=== PATIENT | male | born 1930 | race Caucasian/White ===

== ENCOUNTER 2017-02-16 13:32 | Inpatient (IN) | payer MEDICARE ==
--- NOTE | ~2017-02-16 | DS ---
Discharge Summary [facility] [address] [place]. [address] NAME: LACY FITZGERALD : 34 STATUS : ADM IN [facility]#: [id number] AGE: 87 ADM/REG DATE : 02/16/17 MR#: [id number] REPORT SERV DATE: 02/20/17 DICTATED BY: Brooke BROOKE DATE: 02/20/17 REPORT STATUS : Draft TRANSCRIBED BY: MODL DATE: 02/20/17 ADMISSION DATE: 02/16/2017 DISCHARGE DATE: DIAGNOSES AT THE TIME OF INTERIM SUMMARY: Loptx-ci-lxxsfzs systolic heart failure; cardiogenic shock, resolved; Chronic kidney disease, stage 3 to 4; hypoxic respiratory failure, qwyon-wr-rsjioir ischemic cardiomyopathy, ejection fraction of 20%, chronic obstructive pulmonary disease; hypothyroidism; polyarthritis, resolved. CONSULTS: None. PROCEDURES: None. BRIEF SUMMARY: An 87-year-old male patient presented with cardiogenic shock and acute respiratory failure. The patient's home cardiac medications were held to sustain his blood pressure and volume was given in the emergency room. Unfortunately, this did prompt his systolic heart failure giving his underlying ejection fraction of 20%. Patient was successfully diuresed and we were able to resume part of his cardiac medications with stabilization in his blood pressure. The patient currently is on Bumex 1 mg p.o. b.i.d. along with carvedilol 3.125 mg b.i.d. and potassium supplementation. We continue to hold his Imdur and sotalol. Patient has improved to the point clinically that he can transition out to a cardiac telemetry floor. We will discontinue his Gorman catheter at this time. He will continue to work with physical and occupational therapy. We anticipate a mcfp need at the time of discharge. We will continue to monitor his input, output, daily weights, and electrolytes closely. The patient's hospital care will be provided by another member of the team starting 02/21/2017. The patient is a DNR/DNI of note, and we again anticipate transition to mcfp facility for ongoing improvement in his functional status at the time of discharge. [facility]/RAMY Brooke Brooke M.D. / [id number] CC: Alexandre Parkinson M.D.
--- NOTE | ~2017-02-16 | OP ---
Record Of Operation [facility] [address] [place]. [address] NAME: LACY FITZGERALD : 34 STATUS : ADM IN [facility]#: [id number] AGE: 87 ADM/REG DATE : 02/16/17 MR#: [id number] REPORT SERV DATE: 02/22/17 DICTATED BY: CORBY SPRINGER DATE: 02/22/17 REPORT STATUS : Draft TRANSCRIBED BY: MODL DATE: 02/22/17 DATE OF PROCEDURE: 02/22/2017 PREPROCEDURE DIAGNOSIS: Right knee effusion with possible septic arthrosis. POSTOPERATIVE DIAGNOSIS: Right knee effusion with possible septic arthrosis. PROCEDURE: Aspiration, right knee. SURGEON: Corby Springer M.D. ANESTHESIA: Lidocaine 1% local anesthetic. ESTIMATED BLOOD LOSS: None. FLUIDS: None. DRAINS: None. COMPLICATIONS: None. INDICATION: 87-year-old gentleman presented to the hospital one week prior with multiple joint pain, then had cardiopulmonary issues, which required admission. He continued to have localized pain to the right knee with noted effusion and medical service requested orthopedic consultation for possible septic arthrosis. The patient reports pain diffusely about the knee. Denies any fevers, sweats, chills, nausea, or other constitutional symptoms. He did have an elevated CRP and sedimentation rate, as well as mildly elevated white count. The patient was examined and noted to have a right knee effusion with pain beyond 45-degree flexion. Decision was made for aspiration right knee. The patient was apprised of the recommendations and agreed to proceed. DESCRIPTION OF PROCEDURE: The patient had the right knee prepped and draped with Betadine, alcohol, and skin prep. 2 mL of 1% lidocaine were injected in the subcutaneous tissues for anesthesia. An 18-gauge needle with large syringe was then utilized to perform aspiration of the knee joint. This was done obtaining 2 mL of normal-appearing joint fluid. The fluid was sent off for Gram stain, aerobic, anaerobic, cell count, crystals. The patient will be followed in the hospital post aspiration and then in the office post discharge as needed. ABHIJIT/RAMY Corby Springer M.D. / [id number] Record Of Operation [facility] [address] [place]. [address] NAME: LACY FITZGERALD : 34 STATUS : ADM IN PAT#: [id number] AGE: 87 ADM/REG DATE : 02/16/17 MR#: [id number] REPORT SERV DATE: 02/22/17 DICTATED BY: CORBY SPRINGER DATE: 02/22/17 REPORT STATUS : Draft TRANSCRIBED BY: MODL DATE: 02/22/17 CC: Alexandre Reynolds M.D.
--- NOTE | ~2017-02-16 | IDS ---
Interim Discharge Summary [facility] [address] [place]. [address] NAME: LACY FITZGERALD : 32 STATUS : ADM IN PAT#: [id number] AGE: 87 ADM/REG DATE : 02/16/17 MR#: [id number] REPORT SERV DATE: 02/23/17 DICTATED BY: DATE: REPORT STATUS : Draft TRANSCRIBED BY: MODL DATE: 02/23/17 ADMISSION DATE: 02/16/2017 DISCHARGE DATE: The patient has been admitted to the Hospitalist Service with attending Dr. Shahida Yi, Dr. Kd Diaz, and Dr. Sonya Carvalho. CONSULTANTS: Dr. Enrique Martin of Orthopedics and consultation is pending from Dr. Briscoe of Cardiology. CURRENT DIAGNOSES: 1. Cardiogenic shock-reason for admission. Resolved, although progressively hypotensive despite holding several cardiac medications and diuretics. For evaluation by Cardiology for possible Milrinone infusion or other management recommendations. 2. Acute congestive heart failure exacerbation, systolic-with ejection fraction 15% to 20%. 3. History of AICD. 4. Chronic kidney disease stage 3 to 4-baseline creatinine around 1.7. Possible acute kidney injury with possible cardiorenal syndrome. 5. Demand related ischemia. 6. Oxygen-dependent chronic obstructive pulmonary disease. 7. History of left ventricular thrombus on chronic Coumadin. Heparin drip to bridge. 8. Nonspecific nausea-labs and abdominal ultrasound negative. 9. Polyarthritis, particularly right knee. Status post joint aspiration with no evidence of gout or infection. Started on a low dose of prednisone to assist with pain and mobility. 10.Hypothyroidism. IMAGIN. PA and lateral chest x-ray, 02/16/2017, bibasilar scar and findings of prior asbestos exposure. Prior CABG and pacing device in place. 2. Portable chest x-ray, 02/17/2017, continued cardiomegaly, status post CABG with developing mild interstitial edema and small right pleural fluid effusion. Superimposed on underlying COPD and chronic pleural thickening at lateral bases. 3. Portable chest x-ray, 02/18/2017, cardiomegaly with vascular congestion and bilateral asymmetric infiltrates consistent with asymmetric interstitial edema. 4. Portable chest x-ray, 02/19/2017, bibasilar airspace infiltrates have appearance consistent with pneumonia. 5. Portable KUB, 02/19/2017 for nausea, mild gaseous distention of the transverse colon. Gaseous distention of the stomach. 6. Right knee films, 02/21/2017, severe osteoarthritis pattern predominantly affecting medial joint line. Nonspecific small joint effusion. 7. Abdominal ultrasound, 02/22/2017, no cholelithiasis and no chronic or acute cholecystitis. No bile duct dilatation. Diffuse bilateral renal cortical thinning with no signs of renal obstruction. Small right renal cyst. Interim Discharge Summary [address] [place]. [address] NAME: LACY FITZGERALD : 32 STATUS : ADM IN PAT#: [id number] AGE: 87 ADM/REG DATE : 02/16/17 MR#: [id number] REPORT SERV DATE: 02/23/17 DICTATED BY: DATE: REPORT STATUS : Draft TRANSCRIBED BY: MODCeci DATE: 02/23/17 PERTINENT LABS: Creatinine values ranging from 1.7 to 1.94. TSH 2.62. Troponin values ranging from 0.02 to 0.13. BNP 731. Lactic acid level negative. Procalcitonin negative. Cortisol 19.2. White blood cell count values between 14.5 and 8.4, hemoglobin values between 11.1 and 13.7, platelet count normal. Current INR 1.5. Urinalysis is demonstrating 11 hyaline casts and trace leukocyte esterase. Blood cultures, multiple sets with no growth at this admission. Right knee aspirate, no growth, no white blood cells seen on smear. No crystals. BRIEF HISTORY: For full details, please see the previously dictated history of present illness by Dr. Shahida Yi. This is an 87-year-old white male with extensive cardiac history and COPD, which is oxygen dependent, who came to the emergency department with complaints of joint pain and nausea starting two days prior to admission. In the emergency department, he was found to be hypotensive with blood pressure 84/43, and was admitted to the Hospitalist Service primarily for hypotension and cardiogenic shock. He also demonstrated evidence of acute kidney injury on chronic kidney disease stage 3 versus 4. He was admitted to the [facility] for hospitalization. HOSPITAL COURSE: For dates of service 02/16/2017 to 02/20/2017, please reference interim discharge summary by Dr. Kd Diaz. The patient was initially admitted to the [facility]. Home cardiac medications were held to sustain blood pressure and volume was given. Unfortunately, this did prompt an acute exacerbation of systolic heart failure. The patient was then diuresed and his carvedilol and oral Bumex were able to be resumed. He was transferred to the floor on 02/21/2017, when I assumed his care. Of note, he was also managed with stress-dose steroids while in the IMCU, for unclear reasons. He is not chronically steroid dependent, and no cortisol value was obtained prior to initiating stress dose steroids. His complaints of polyarticular pain improved dramatically while he was on the steroids, but the steroids were discontinued in the IMCU. When I assumed care of him on 02/21/2017 his main complaints were of nausea, and increased pain in his right knee specifically. He is also complaining of nonspecific weakness. His blood pressure that day was great with a systolic of 130/81. However, over the past several days his blood pressures continued to down trend, currently in the mid 80s over 60s on low dose of carvedilol and oral Bumex. Given the delicate balance of his blood pressure and cardiac medications, and the need to further decrease his Bumex today, I will ask Cardiology to see for evaluation for additional recommendations. Specifically, the patient may benefit from Milrinone, but I am unclear ask to his piece dye worker's opinion on this. He has experienced an increase in his creatinine over the past few days on oral Bumex. We will decrease his Bumex and recheck in the morning, again asking Cardiology for recommendations as this may represent some cardiorenal syndrome. For the knee pain, the patient had a joint aspiration by Dr. Enrique Martin on 02/22/2017 with only 2 mL of fluid removed, not terribly suggestive of infection. White blood cell on smear was negative and cultures have been negative thus far. The knee is feeling better, and we will plan to reinstitute the patient on a low dose of steroids to see if this helps with his polyarticular pain. Interim Discharge Summary [place] [id number] [facility] [place]. [address] NAME: LACY FITZGERALD : 32 STATUS : ADM IN PAT#: [id number] AGE: 87 ADM/REG DATE : 02/16/17 MR#: [id number] REPORT SERV DATE: 02/23/17 DICTATED BY: DATE: REPORT STATUS : Draft TRANSCRIBED BY: MODL DATE: 02/23/17 Also this weekend he was complaining of some nonspecific nausea. Multiple laxatives have been used in attempt to treat constipation, without bowel movement. We will try lactulose and if that is unsuccessful, an enema. Abdominal ultrasound and KUB as well as labs have been nonrevealing of any acute intraabdominal process. His nausea has generally resolved and he is tolerating a diet without difficulty. He has a history of an LV thrombus and his Coumadin was initially held. Pending physical therapy evaluation for fall risk. He is on a heparin drip presently, and Coumadin has been re-initiated to bridge to a goal INR of 2 to 3. DISCHARGE DISPOSITION: The patient remains hospitalized for Cardiology evaluation, with current disposition at discharge unclear. The patient wants to go home with home health or home physical therapy, although may not be a candidate for this given his general degree of weakness. Inpatient rehab may be recommended. Items to following morning include Cardiology recommendations, daily PT/INR with heparin drip to discontinue when INR greater than equal to 2 on two consecutive occasions. Repeat creatinine and blood pressure measurements on decreased dose of Bumex, and a two-view chest x-ray in the morning as the patient was developing a slight cough today and there was question of a pneumonia previously in the hospitalization, although procalcitonin was negative at that point and he has not been treated with antibiotics this admission. GENIE/RAMY Sonya Carvalho M.D. / [id number] CC: SONYA CARVALHO M.D. James Hoback Jr., M.D.
--- NOTE | ~2017-02-16 | DS ---
Discharge Summary [facility] [address] [place]. [address] NAME: LACY FITZGERALD : 32 STATUS : DIS IN PAT#: [id number] AGE: 87 ADM/REG DATE : 02/16/17 MR#: [id number] REPORT SERV DATE: 03/02/17 DICTATED BY: KARISSA CANELA DATE: 03/02/17 REPORT STATUS : Draft TRANSCRIBED BY: MODL DATE: 03/02/17 ADMISSION DATE: 02/16/2017 DISCHARGE DATE: 03/02/2017 Date of tentative transfer to [facility] [place] is 03/02/2017. CONDITION ON TRANSFER: Stable. DISPOSITION: Transfer to [facility] [place]. DIAGNOSES ON DISCHARGE: 1. Cardiogenic shock-resolved. 2. Acute systolic and diastolic congestive heart failure-resolved. 3. Chronic cardiomyopathy with an ejection fraction of only 25%. Actually, this is an improvement from an ejection fraction of only 15%. The improvement happened after college admissions counselor, Dr. Briscoe, had him on IV dopamine for a few days. 4. Chronic congestive heart failure and cardiomyopathy with an EF of 25%. 5. History of AICD. 6. Chronic kidney disease, stage III with baseline creatinine of about 1.7. 7. Oxygen-dependent chronic obstructive pulmonary disease. 8. History of left ventricular thrombus, for which the patient is on Coumadin and currently the patient is therapeutic on the Coumadin. 9. Polyarthritis, status post joint aspiration of the right knee, for which the patient is on low-dose prednisone and this could be tapered off. 10.Hypothyroidism which is stable. BRIEF HOSPITAL COURSE: All the way up until 02/24/2017, this patient was cared for by Dr. Kevin Knowles, please refer to her for this interim discharge summary. When I took over care of this patient on 02/24/2017, the patient had already been seen by Dr. Briscoe and he had started him on IV dopamine infusion. The patient was on IV dopamine for about three days and then Dr. Briscoe weaned him off that. His EF still continues to be very low and there is very little improvement if any in his ejection fraction and it is about 25% on most recent echocardiogram. Currently, the patient is able to be mobile within his room himself. He does have a walker at home according to the , but he hardly uses it. Right here in the hospital, he sometimes uses the walker when he has to get out of his room, but within the room if it is just a few steps he is able to walk even without the walker. The patient continues to be on chronic oxygen therapy with oxygen at about 3 liters/minute. The plan is for the patient to go on to [facility] [place] for physical strengthening. The patient is willing to go this time because he knows that it is only for a brief period until he is able to recover from his physical deconditioning. The patient will need inpatient PT, OT for a few more days, and hence the reason for transfer. The most recent labs that I have on this patient include the following. On 03/02/2017, the patient's protime came back therapeutic at 2.5. The patient has also had an electrolyte profile that was done on 03/01/2017 and this has come back with creatinine at 1.6 which is his baseline. Discharge Summary [address] [address] NAME: LACY FITZGERALD : 32 STATUS : DIS IN PAT#: [id number] AGE: 87 ADM/REG DATE : 02/16/17 MR#: [id number] REPORT SERV DATE: 03/02/17 DICTATED BY: KARISSA CANELA DATE: 03/02/17 REPORT STATUS : Draft TRANSCRIBED BY: RAMY DATE: 03/02/17 His CBC essentially was done on 02/25/2017, and on that day, his white blood cell count was 8.6, hemoglobin 13.1, hematocrit 38.8, and normal platelets. His brain natriuretic peptide is 449.5, which is probably his baseline given the severe systolic dysfunction. Blood cultures so far has come back negative. Culture of the fluid from the right knee has come back with no growth. As mentioned above, the most recent ejection fraction is 25% and right now the patient is quite mobile within his own room. He will be discharged home on the following medications. The patient will be discharged home on aspirin 81 mg once a day. Coumadin sliding scale to keep INR between 2 and 3. Sotalol 40 mg once a day. Coreg 3.125 mg p.o. at bedtime. It is to be noted that Coreg is only once a day and sotalol is also once a day, but both are beta blockers and that is the way Cardiology wants it. Regarding his respiratory problems, he will be on Brovana inhalation twice a day, Proventil p.r.n., Pulmicort Respules 1 mg twice daily p.r.n., Spiriva one capsule via HandiHaler, and continue Synthroid 25 mcg once a day. In addition to this, the patient will also be on Bumex 0.5 mg p.o. b.i.d., and this is all pretty much that he requires to keep fluid off his lungs at this time. Hence his cardiac medications will be Bumex, Coreg, sotalol, and Coumadin. Regarding Deltasone, he will be weaned off prednisone. He will be given a prescription for 10 mg a day for next three days, 5 mg a day for the next three days and stop. Essentially, he was just started on prednisone to improve his mobility after his right knee was drained. Otherwise, the patient has been doing really well and will be sent to [facility] when bed available and I have spent about 40 minutes in coordinating discharge care of this patient. DICTATED BY: Alexandre Díaz/RAMY Karissa Canela M.D. / [id number] CC: Alexandre Díaz M.D.
--- NOTE | ~2017-02-16 | OP ---
Record Of Operation [facility] [address] [place], [place]. [address] NAME: LACY FITZGERALD : 32 STATUS : ADM IN PAT#: [id number] AGE: 87 ADM/REG DATE : 02/16/17 MR#: [id number] REPORT SERV DATE: 02/22/17 DICTATED BY: CORBY SPRINGER DATE: 02/22/17 REPORT STATUS : Draft TRANSCRIBED BY: MODL DATE: 02/22/17 DATE OF PROCEDURE: 02/22/2017 PREPROCEDURE DIAGNOSIS: Right knee effusion, rule out septic arthritis. POSTOPERATIVE DIAGNOSIS: Right knee effusion, rule out septic arthritis. PROCEDURE: Aspiration, right knee DICTATION ENDS HERE EC/MODL Corby Springer M.D. / [id number] CC: Alexandre Reynolds M.D.
--- NOTE | ~2017-02-16 | CN ---
Consultation Report [facility] [address] [place]. [address] NAME: LACY FITZGERALD : 34 STATUS : ADM IN [facility]#: [id number] AGE: 87 ADM/REG DATE : 02/16/17 MR#: [id number] REPORT SERV DATE: 02/22/17 DICTATED BY: CORBY SPRINGER DATE: 02/22/17 REPORT STATUS : Draft TRANSCRIBED BY: MODL DATE: 02/22/17 CONSULTATION DATE OF CONSULTATION: 02/22/2017 CHIEF COMPLAINT: Right knee pain and swelling. HISTORY OF PRESENT ILLNESS: An 87-year-old gentleman presented to the emergency department one week prior to [facility] for evaluation of multiple joint complaints with shortness of breath. He is admitted to the hospital and has been to the ICU and then back to the floor with cardiopulmonary issues. The patient has continued to complain of right knee pain with swelling, seen by Medical Service and recommendation made for consideration of aspiration of the knee. An orthopedic consultation was therefore obtained. The patient denied any numbness or tingling in the foot nor any pain proximal to the hip or low back. He does report multiple joint issues, have subsided somewhat, still continue however to have right knee pain. The patient denies any fever. He also denies any issue with his knee previous to his admission last week with any kind of an abrasion or injury. PAST MEDICAL HISTORY: Reviewed and is significant for heart disease, cataract, hearing loss, myopia, hypercholesterolemia, myocardial infarction, congestive heart failure, COPD, pneumonia, PREVIOUS SURGICAL PROCEDURES: Inclusive of lumbar spine surgery for fracture, cardiac stent placement, coronary artery bypass graft, cataract removal, pacemaker placement with battery exchange. CURRENT MEDICATIONS: Inclusive of Tylenol, albuterol, aspirin, Symbicort, Bumex, Coreg, Imdur, Synthroid, Pravachol, Betapace, Spiriva, and warfarin 2.5 mg tablet. ALLERGIES: TO ALPRAZOLAM, CODEINE, HYDROCODONE, JUJU INHIBITORS. FAMILY HISTORY: Significant for heart disease. SOCIAL HISTORY: Former tobacco use. Lives in a private residence. Community ambulator. History of multiple joint complaints, intermittent. REVIEW OF SYSTEMS: 10 system review is negative, except for that mentioned in the history of present illness and past medical history. PHYSICAL EXAMINATION: VITAL SIGNS: Temperature 98.7, pulse 70, respirations 16. GENERAL: He is a well-developed, well-nourished male appearing his stated age of 87 years, no acute distress. Alert and cooperative. Consultation Report [facility] [address] [place]. [address] NAME: LACY FITZGERALD : 34 STATUS : ADM IN PAT#: [id number] AGE: 87 ADM/REG DATE : 02/16/17 MR#: [id number] REPORT SERV DATE: 02/22/17 DICTATED BY: CORBY SPRINGER DATE: 02/22/17 REPORT STATUS : Draft TRANSCRIBED BY: RAMY DATE: 02/22/17 EXTREMITIES: Examination to the upper extremities reveals full passive range of motion of the shoulders, wrist, elbows, hands, and digits with intact neurovascular exam distally to the hands. Lower extremity examination shows full range of motion of the left lower extremity from hip to ankle. Right lower extremity, no pain with range of motion with hip and external rotation. Right knee does show no warmth, but a nglb-qm-jyvymoct effusion on palpation. Passive range of motion was tolerated well 0 to 45 degree arc of motion, beyond which he had discomfort. He did not have any obvious warmth. There was slight erythema bilateral knees of the anterior knee joint and the patella bursal area with no obvious fluid collection. Distally in the right lower extremity, he had no pain in the ankle with an intact neurovascular exam distally to the digits. Motor function, light touch sensation is intact. Good cap refills in the integument throughout. IMAGING: Radiographs reviewed, indicates medial joint arthrosis, right knee with surgical clips consistent with previous cardiac bypass grafting. Minimal effusion is noted. ASSESSMENT: Right knee effusion, rule out septic arthrosis. PLAN: Due to the patient's increased sedimentation rate and CRP, mildly elevated white blood cell count, recommend aspiration of the knee. The procedure, its inherent risks, and complications discussed with the patient. He voiced understanding and agreed. The patient be followed in the hospital post aspiration and then post discharge in the office. EC/RISSAL Corby Springer M.D. / [id number] CC: Kevin Knowles M.D. Chapito Alvarado M.D.
--- NOTE | ~2017-02-16 | CN ---
Consultation Report [facility] [address] [place]. [address] NAME: LACY MCKOY : 34 STATUS : ADM IN [facility]#: [id number] AGE: 87 ADM/REG DATE : 02/16/17 MR#: [id number] REPORT SERV DATE: 02/24/17 DICTATED BY: JEAN HENSLEY DATE: 02/23/17 REPORT STATUS : Draft TRANSCRIBED BY: MODCeci DATE: 02/23/17 CARDIOLOGY CONSULTATION NOTE DATE OF CONSULTATION: 02/23/2017 PRIMARY TAILORING TEACHER: Dr. Briscoe. CHIEF COMPLAINT: Joint pain all over. REASON FOR CONSULTATION: History of congestive heart failure and hypotension. SOURCE: The patient chart and his . HISTORY OF PRESENT ILLNESS: Mr. Mckoy is a very pleasant 87-year-old white man with history of coronary artery disease and chronic systolic congestive heart failure as well as BOILERMAKER WELDER-D ICD placement. He was in his usual state of health until last week when he had pain in all of his joints he came to the ER on 02/16/2017 was noted to have hypotension and was admitted. He has been treated since that time, feels a little bit better today. He still has profound tiredness and fatigue yesterday. He has some pains in his fingers and ankles, but since the right knee joint fluid was drained with arthrocentesis yesterday, his right knee feels better. He has not had any fever or chills. No other swelling. No chest pain, palpitations, dizziness, or syncope. No defibrillator shocks. He has had shortness of breath. REVIEW OF SYSTEMS: All other systems are negative. ALLERGIES: INCLUDED JUJU INHIBITORS, ALPRAZOLAM, CODEINE, AND HYDROCODONE. MEDICATIONS: Now include aspirin, Bumex, carvedilol, Colace, Synthroid, milk of magnesia, MiraLAX, potassium, Pravachol, Spiriva, and Coumadin. CARDIAC RISK FACTORS: Include cholesterol, remote tobacco. Denies diabetes, hypertension, or family history. SOCIAL HISTORY: The patient lives in [facility]. He has two living children, alive and well. One with lupus and one diabetes. He is . FAMILY HISTORY: Mother had myocardial infarction in her 60s. Father had stroke at age 58. PAST MEDICAL HISTORY: Significant for coronary artery disease, status post coronary artery bypass grafting reportedly to three vessels at [facility] in 1999, status post pacemaker and ICD placement in 2008 and 2014, BOILERMAKER WELDER-D Medtronic device, history of chronic systolic congestive heart failure with last LVEF of 20% by an echo in 2014. He had possible left Consultation Report [facility] [address] [place]. [address] NAME: LACY MCKOY : 32 STATUS : ADM IN PAT#: [id number] AGE: 87 ADM/REG DATE : 02/16/17 MR#: [id number] REPORT SERV DATE: 02/24/17 DICTATED BY: JEAN HENSLEY DATE: 02/23/17 REPORT STATUS : Draft TRANSCRIBED BY: MODL DATE: 02/23/17 ventricular thrombus and was treated with Coumadin. He has had last catheterization in October 2014 which revealed three-vessel [place] coronary artery disease, 100% RCA, 100% left circumflex, 50% mid LAD. He had saphenous vein graft to PDA with severe proximal stenosis, saphenous vein graft to OM to posterolateral with severe anastomotic lesion of the left posterolateral branch, treated medically. Back fracture in 2000 with back surgery in 2001. Status post cataract surgery. Asbestosis developed at [facility] and COPD. PHYSICAL EXAMINATION: GENERAL: Well-developed, well-nourished very elderly white man, in no acute distress. VITAL SIGNS: Blood pressure is 93/51, pulse 66, temperature 98.2, weight is 75 kg, height is 5 feet 8 inches. HEENT: Sclerae anicteric. Lips without cyanosis. Carotids 2+ and symmetrical. No bruits. No JVD. No thyromegaly. LUNGS: Clear to auscultation. No use of accessory muscles. HEART: Regular rate and rhythm without murmur, gallop, or rub. Diminished heart sounds. CHEST: Healed ICD site in the abdomen. Positive bowel sounds. Soft, nontender. EXTREMITIES: Pulses 2+ and symmetrical. No cyanosis, clubbing, or edema. BACK: No CVA tenderness. MUSCULOSKELETAL: Good tone. NEURO: Alert and oriented x3. STUDIES: The EKG reveals atrial sinus ventricular paced rhythm with occasional PVCs. LABORATORY EXAMINATION: Sodium 138, potassium 4.8, chloride 97, CO2 of 33, glucose 108, BUN 44, creatinine 1.94, calcium 9.3, magnesium 3.2. White count is 10.1, hemoglobin 12.6, hematocrit 37.8, platelets 181,000. INR 1.5. Urinalysis; specific gravity 1.012, pH 7.0, dip negative, trace leukocyte esterase, 1 red cell, 1 white cell. The chest x-ray reveals basilar airspace infiltrates, appearance more consistent with pneumonia on 02/19/2017. The BNP level on 02/16/2017 was 731. The lactate on arrival was 1.0. The troponins only minimal elevation with peak of 0.13. The procalcitonin was 0.13 as well. IMPRESSION: 1. Acute on chronic systolic congestive heart failure, currently diuresing well on his current regimen. 2. Coronary artery disease, status post coronary artery bypass grafting in 1999 at [facility], three vessels, currently asymptomatic. 3. Status post ICD placement in 2014 with a Medtronic BOILERMAKER WELDER-D device. 4. Last left ventricular ejection fraction of 20% by echo, October 2014. 5. Last catheterization, also October 2014, revealed three-vessel [place]olla disease with 100% right coronary artery, 100% left circumflex, 50% mid left anterior descending. He had saphenous vein graft to patent ductus arteriosus with severe proximal stenosis and Consultation Report [place] [id number] [facility] [place]. [address] NAME: LACY MCKOY : 32 STATUS : ADM IN [facility]#: [id number] AGE: 87 ADM/REG DATE : 02/16/17 MR#: [id number] REPORT SERV DATE: 02/24/17 DICTATED BY: JEAN HENSLEY DATE: 02/23/17 REPORT STATUS : Draft TRANSCRIBED BY: MODCeci DATE: 02/23/17 saphenous vein graft obtuse marginal to posterolateral with severe anastomotic lesion at the posterolateral branch. He was treated medically at that time. 6. Reported hypotension in the ER, now resolved. 7. Chronic kidney disease stage 3. 8. History of possible left ventricular thrombus, on Coumadin, transitioning from heparin to Coumadin at this time. 9. Elevated cholesterol, on statin therapy. 10.Former tobacco use. 11.Right knee effusion, status post arthrocentesis. RECOMMENDATIONS: 1. Check blood pressure, both arms. 2. Check orthostatic vital signs. 3. Echocardiogram for reassessment of left ventricular systolic function and possible LV thrombus. 4. Medtronic ICD check. 5. Continue current medications for now. 6. Further recommendations following the above, Dr. Briscoe back in the a.m. CURTIS/MODL Jean Hensley M.D. / [id number] CC: Alexandre Reynolds M.D.
--- NOTE | ~2017-02-16 | HP ---
History And Physical [place] [id number] [facility] [place]. [address] NAME: LACY FITZGERALD : 34 STATUS : ADM IN [facility]#: [id number] AGE: 87 ADM/REG DATE : 02/16/17 MR#: [id number] REPORT SERV DATE: 02/17/17 DICTATED BY: SHAHIDA YI DATE: 02/16/17 REPORT STATUS : Draft TRANSCRIBED BY: MODL DATE: 02/16/17 DATE OF ADMISSION: 02/16/2017 CHIEF COMPLAINT: Joint pain two days ago. HISTORY OF PRESENT ILLNESS: This is an 87-year-old male patient, who does have multiple medical problems including severe COPD and ischemic cardiomyopathy with presence of AICD with chronic kidney disease, came to the hospital with complaint of joint pain, symmetric pain, started two days ago. He started having a swollen feeling of his all joints and aching feeling and stiffness on his joints everywhere in his body system including shoulders, elbows, hands, knees, and feet. However, he denies any fever. Denies any worsening cough and any sputum production. Denies any shortness of breath. He has been hospitalized multiple times last year. The last admission was 09/2016. After that, he has been stable at home with stable condition. He was even going to the pulmonary rehab as an outpatient up until last month. He quit last month because he feels like he is not getting enough help and he is getting stronger. He does not do that much at home, but he still does 14 steps climbing up and down three times a day at home and he uses a cane. He denies any worsening cough or change of urinary habit, but the noticed that his urine has been slightly darker than before. He does have chronic orthopnea, it has not been changed. He uses home oxygen 3 to 4 L and his oxygen is 96% on 3 L of oxygen. He denies any arthritis. He denies any redness or skin lesions. He did not have any new procedures or any changes in his medications. REVIEW OF SYSTEMS: Fourteen systems are reviewed and negative. PAST MEDICAL HISTORY: 1. COPD. 2. 3 L of home oxygen, chronic hypoxic respiratory failure. 3. Ischemic cardiomyopathy. 4. Chronic anticoagulation with Coumadin for left ventricular thrombus. 5. Systolic heart failure. 6. AICD status post. 7. Chronic kidney disease. 8. Recurrent pneumonia. 9. History of asbestos exposure. SOCIAL HISTORY: He is for the last 17 years. He lives with his . He is using a cane most of the time, but he does have a walker and wheelchair at home. He does not drive a car anymore. He went to pulmonary rehab up until last month. He is followed by Dr. Maldonado for his pulmonary condition. FAMILY HISTORY: Noncontributory for his current condition. History And Physical [address] [address] NAME: LACY FITZGERALD : 34 STATUS : ADM IN [facility]#: [id number] AGE: 87 ADM/REG DATE : 02/16/17 MR#: [id number] REPORT SERV DATE: 02/17/17 DICTATED BY: SHAHIDA YI DATE: 02/16/17 REPORT STATUS : Draft TRANSCRIBED BY: RAMY DATE: 02/16/17 MEDICATIONS AT HOME: 1. Tylenol as needed. 2. Albuterol as needed. 3. Aspirin 81 mg once a day. 4. Symbicort two puffs twice a day. 5. Bumex 1 mg twice a day. 6. Coreg 3.125 mg twice a day. 7. Imdur 30 mg once in the morning time. 8. Synthroid 25 mcg once a day. 9. Pravachol 20 mg once at nighttime, total of 40 mg once in the morning time. 10.Spiriva one capsule once a day. 11.Warfarin 2.5 mg once at nighttime. PHYSICAL EXAMINATION: VITAL SIGNS: Blood pressure 84/43, pulse is 62, temperature was 97.7, saturation is 96% on 3 L home oxygen. GENERAL APPEARANCE: He is alert, awake, slightly chronic fatigued appearance, not in acute distress of the respiratory. HEENT: Pupils are equal, round, and reactive to light. Conjunctivae not anemic. NECK: I do not see the jugular venous distention and has no nodes palpable. LUNGS: Has both base crackles. There is no wheezing. CARDIOVASCULAR: Heart sound is distant. The patient has AICD in place. Has a regular rhythm and rate. ABDOMEN: Abdomen is soft. There is no tenderness or rebound. No rebound tenderness. EXTREMITIES: The patient has chronic pedal edema on both feet. It is not any worse according to his . LABORATORY DATA: Laboratory showed sodium 138, potassium 4.2, chloride 100, BUN 36, creatinine of 1.9. WBC is 14.5, hemoglobin 13.7, hematocrit 40.8, platelets 183, INR is 1.6. Troponin is 0.02. Electrocardiogram showed atrial paced rhythm. X-ray showed not much difference from 09/19. Has chronic changes on both bases. Does not show any volume overload issues. ASSESSMENT AND PLAN: 1. Hypotension and shock. 2. Acute kidney injury on chronic kidney disease. 3. Chronic obstructive pulmonary disease. 4. Ischemic cardiomyopathy. History of AICD. Overall, the patient will be hospitalized in intermediate ICU with supportive care. We are going to use IV steroid stress dose. The patient has a history of COPD and recurrent admissions, and he does not have any confirmed adrenal insufficiency diagnosis, but we are going to treat as it is at this point. Also, we are going to do gentle hydration and hold blood pressure medicine and diuretics for tonight. The patient will be followed by one of History And Physical [address] [address] NAME: LACY FITZGERALD : 34 STATUS : ADM IN [facility]#: [id number] AGE: 87 ADM/REG DATE : 02/16/17 MR#: [id number] REPORT SERV DATE: 02/17/17 DICTATED BY: SHAHIDA YI DATE: 02/16/17 REPORT STATUS : Draft TRANSCRIBED BY: MODL DATE: 02/16/17 the hospitalists tomorrow in [facility]. His code status is DNR and DNI. His power of civil rights attorney is his . DVT prophylaxis. Will be continuing his home Coumadin. EKL/MODL Shahida Yi M.D. / [id number] CC: Alexandre Duenas M.D.
[~2017-02-16 13:32] MED LIST: ADVAIR250 INH; ASA5GR PO; ASAB PO; BETAPACE80 PO; BUM1 PO; C1 PO; CO Q-10 OTC PO; CO Q-10100 MG PO; COQ10100 MG PO; CORDARONE PO; COREG3 PO; COREG6 PO; HALF81 PO; HCTZ25B PO; HYDROCORTISONE 1% TOP; IMDUR30 PO; JANTOVEN1 MG PO; JANTOVEN2 MG PO; JANTOVEN3 MG PO; L40 PO; LAN125 PO; LEVAQUIN750 MG PO; LEVOTHYROXIN25 MCG PO; M-END PE PO; MAGOX4 PO; NITROSTAT0.4 MG SL; P10 PO; P20 PO; PRAVAC PO; PROAIR HFA INH; PROVENTSOL INH; PROVHFA INH; SPIRIVA INH; SPIRIVA RESPIMAT INH; SPIRO25 PO; SYMBICORT 160/41 INH INH; VENTOLIN HFA INH; VIB100 PO; Z-PAK PO; ZITH250 PO
[2017-02-16 14:31] LABS: BASOPHILS 0.2 %; BASOPHILS ABSOLUTE 0.03 10/3/uL (0.0-0.16); EOSINOPHILS 1.2 %; EOSINOPHILS ABSOLUTE 0.18 10/3/uL (0.0-0.53); HEMATOCRIT 40.8 % (40.0-51.0); HEMOGLOBIN 13.7 g/dL (13.6-17.8); IMMATURE GRANULOCYTES 0.3 %; IMMATURE GRANULOCYTES ABSOLUTE 0.05 10/3/uL (0.0-0.11); LYMPHOCYTES 12.4 %; LYMPHOCYTES ABSOLUTE 1.79 10/3/uL (0.67-4.30); MEAN CORPUS HGB CONC 33.6 g/dL (32.0-36.0); MEAN CORPUSCULAR HEMOGLOB 30.3 pg (26.0-34.0); MEAN CORPUSCULAR VOLUME 90.3 fL (80-100); MEAN PLATELET VOLUME 10.4 fL (9.2-13.0); MONOCYTES 11.1 %; NEUTROPHILS 74.8 %; NEUTROPHILS ABSOLUTE 10.81 10/3/uL (2.02-8.40); PLATELET COUNT 183 10/3/uL (150-400); RBC DISTRIBUTION WIDTH 14.2 % (12.0-16.0); RED CELL COUNT 4.52 10/6/uL (4.7-6.1)
[2017-02-16 14:33] LABS: ER CBC TAT 0 Hrs 07 Mins; MANUAL DIFF NO %; WHITE BLOOD CELLS 14.5 10/3/uL (4.5-10.5)
[2017-02-16 14:40] LABS: INTERNATIONAL NORMAL RATI 1.6 UNITS (-); PARTIAL THROMBO TIME 37.3 SEC (22.5-37.2); PROTIME (NOT ORD) 18.7 SEC (12.0-14.5)
[2017-02-16 14:49] LABS: CHEST PAIN PROFILE TAT 0 Hrs 23 Mins; CHLORIDE, SERUM 100 MMOL/L (96-112); GFR AFRICAN AMERICAN 36 ML/MIN (>=60); GFR NON AFRICAN AMERICAN 31 ML/MIN (>=60); POTASSIUM, SERUM 4.2 MMOL/L (3.5-5.3); SODIUM, SERUM 138 MMOL/L (135-148); TROPONIN I 0.02 NG/ML (<0.05)
[2017-02-16 14:50] LABS: BUN (BLOOD UREA NITROGEN) 36 MG/DL (6-23); CALCIUM, SERUM 9.7 MG/DL (8.5-10.4); CO2 (CARBON DIOXIDE) 32 MMOL/L (24-34); GLUCOSE, SERUM 139 MG/DL (60-99)
[2017-02-16] MEDS ORDERED: SPIRIVA INH (16:59)
[2017-02-16] MEDS ORDERED: SYMBICORT 160/41 INH INH (16:59)
[2017-02-16] MEDS ORDERED: BUM1 PO (17:00)
[2017-02-16] MEDS ORDERED: COREG3 PO (17:00)
[2017-02-16] MEDS ORDERED: ALBUTEROL0.083 % INH (17:01)
[2017-02-16] MEDS ORDERED: JANTOVEN2.5 MG PO (17:01)
[2017-02-16] MEDS ORDERED: BETAPACE80 PO (17:02)
[2017-02-16] MEDS ORDERED: IMDUR30 PO (17:02)
[2017-02-16] MEDS ORDERED: PRAVAC PO (17:03)
[2017-02-16] MEDS ORDERED: SYN.025B PO (17:03)
[2017-02-16] MEDS ORDERED: ASAB PO (17:05)
[2017-02-16] MEDS ORDERED: ACET500CAP PO (17:06)
[2017-02-17 05:17] LABS: INTERNATIONAL NORMAL RATI 1.7 UNITS (-); PROTIME (NOT ORD) 19.6 SEC (12.0-14.5)
[2017-02-17 05:20] LABS: BASOPHILS 0.1 %; BASOPHILS ABSOLUTE 0.01 10/3/uL (0.0-0.16); EOSINOPHILS 0.6 %; EOSINOPHILS ABSOLUTE 0.05 10/3/uL (0.0-0.53); HEMATOCRIT 33.9 % (40.0-51.0); HEMOGLOBIN 11.1 g/dL (13.6-17.8); IMMATURE GRANULOCYTES 0.1 %; IMMATURE GRANULOCYTES ABSOLUTE 0.01 10/3/uL (0.0-0.11); LYMPHOCYTES 17.1 %; LYMPHOCYTES ABSOLUTE 1.44 10/3/uL (0.67-4.30); MANUAL DIFF NO %; MEAN CORPUS HGB CONC 32.7 g/dL (32.0-36.0); MEAN CORPUSCULAR HEMOGLOB 29.7 pg (26.0-34.0); MEAN CORPUSCULAR VOLUME 90.6 fL (80-100); MEAN PLATELET VOLUME 10.4 fL (9.2-13.0); MONOCYTES 6.6 %; MONOCYTES ABSOLUTE 0.56 10/3/uL (0.21-1.20); NEUTROPHILS 75.5 %; NEUTROPHILS ABSOLUTE 6.37 10/3/uL (2.02-8.40); PLATELET COUNT 155 10/3/uL (150-400); RBC DISTRIBUTION WIDTH 13.9 % (12.0-16.0); RED CELL COUNT 3.74 10/6/uL (4.7-6.1); WHITE BLOOD CELLS 8.4 10/3/uL (4.5-10.5)
[2017-02-17 05:37] LABS: A/G RATIO 0.7 (0.7-1.9); ALBUMIN 2.9 G/DL (3.5-5.0); CALCIUM, SERUM 8.9 MG/DL (8.5-10.4); CHLORIDE, SERUM 105 MMOL/L (96-112); CO2 (CARBON DIOXIDE) 30 MMOL/L (24-34); CREATININE 1.91 MG/DL (0.70-1.30); GFR AFRICAN AMERICAN 36 ML/MIN (>=60); GFR NON AFRICAN AMERICAN 31 ML/MIN (>=60); GLOBULIN 4.1 G/DL (2.5-4.1); GLUCOSE, SERUM 152 MG/DL (60-99); POTASSIUM, SERUM 4.5 MMOL/L (3.5-5.3); SGOT(AST) 8 U/L (5-40); SGPT(ALT) 10 U/L (5-65); SODIUM, SERUM 140 MMOL/L (135-148)
[2017-02-17 05:38] LABS: ALKALINE PHOSPHATASE 85 U/L (45-117); BUN (BLOOD UREA NITROGEN) 40 MG/DL (6-23); TOTAL BILIRUBIN 0.4 MG/DL (0-1.2)
[2017-02-17 05:53] LABS: PROCALCITONIN 0.13 ng/mL (<0.5)
[2017-02-18 06:07] LABS: INTERNATIONAL NORMAL RATI 1.6 UNITS (-); PROTIME (NOT ORD) 19.1 SEC (12.0-14.5)
[2017-02-18 06:12] LABS: CALCIUM, SERUM 9.5 MG/DL (8.5-10.4); CHLORIDE, SERUM 107 MMOL/L (96-112); GFR AFRICAN AMERICAN 42 ML/MIN (>=60); GFR NON AFRICAN AMERICAN 36 ML/MIN (>=60); GLUCOSE, SERUM 142 MG/DL (60-99); PHOSPHORUS, SERUM 2.7 MG/DL (2.5-4.5); POTASSIUM, SERUM 4.4 MMOL/L (3.5-5.3); SODIUM, SERUM 139 MMOL/L (135-148)
[2017-02-18 06:14] LABS: BUN (BLOOD UREA NITROGEN) 35 MG/DL (6-23); CO2 (CARBON DIOXIDE) 24 MMOL/L (24-34)
[2017-02-18 07:01] LABS: CPK 50 U/L (0-200)
[2017-02-18 07:02] LABS: CK-MB 2.3 NG/ML
[2017-02-18 07:03] LABS: TROPONIN I 0.05 NG/ML (<0.05)
[2017-02-19 05:22] LABS: INTERNATIONAL NORMAL RATI 1.7 UNITS (-); PROTIME (NOT ORD) 20.2 SEC (12.0-14.5)
[2017-02-19 05:47] LABS: BUN (BLOOD UREA NITROGEN) 35 MG/DL (6-23); CALCIUM, SERUM 8.7 MG/DL (8.5-10.4); CHLORIDE, SERUM 104 MMOL/L (96-112); CO2 (CARBON DIOXIDE) 29 MMOL/L (24-34); CREATININE 1.76 MG/DL (0.70-1.30); GFR AFRICAN AMERICAN 40 ML/MIN (>=60); GFR NON AFRICAN AMERICAN 34 ML/MIN (>=60); GLUCOSE, SERUM 132 MG/DL (60-99); PHOSPHORUS, SERUM 2.8 MG/DL (2.5-4.5); POTASSIUM, SERUM 4.2 MMOL/L (3.5-5.3); SODIUM, SERUM 140 MMOL/L (135-148)
[2017-02-20 05:05] LABS: BASOPHILS 0.4 %; BASOPHILS ABSOLUTE 0.03 10/3/uL (0.0-0.16); EOSINOPHILS 3.2 %; EOSINOPHILS ABSOLUTE 0.25 10/3/uL (0.0-0.53); HEMATOCRIT 40.4 % (40.0-51.0); HEMOGLOBIN 13.1 g/dL (13.6-17.8); IMMATURE GRANULOCYTES 0.3 %; IMMATURE GRANULOCYTES ABSOLUTE 0.02 10/3/uL (0.0-0.11); LYMPHOCYTES 22.2 %; LYMPHOCYTES ABSOLUTE 1.75 10/3/uL (0.67-4.30); MANUAL DIFF NO %; MEAN CORPUS HGB CONC 32.4 g/dL (32.0-36.0); MEAN CORPUSCULAR HEMOGLOB 29.4 pg (26.0-34.0); MEAN CORPUSCULAR VOLUME 90.6 fL (80-100); MONOCYTES 11.1 %; MONOCYTES ABSOLUTE 0.88 10/3/uL (0.21-1.20); NEUTROPHILS 62.8 %; NEUTROPHILS ABSOLUTE 4.97 10/3/uL (2.02-8.40); PLATELET COUNT 188 10/3/uL (150-400); RBC DISTRIBUTION WIDTH 13.7 % (12.0-16.0); RED CELL COUNT 4.46 10/6/uL (4.7-6.1); WHITE BLOOD CELLS 7.9 10/3/uL (4.5-10.5)
[2017-02-20 05:08] LABS: A/G RATIO 0.7 (0.7-1.9); ALBUMIN 3.1 G/DL (3.5-5.0); ALKALINE PHOSPHATASE 95 U/L (45-117); BUN (BLOOD UREA NITROGEN) 35 MG/DL (6-23); CALCIUM, SERUM 9.2 MG/DL (8.5-10.4); CHLORIDE, SERUM 101 MMOL/L (96-112); CO2 (CARBON DIOXIDE) 33 MMOL/L (24-34); CREATININE 1.69 MG/DL (0.70-1.30); GFR AFRICAN AMERICAN 42 ML/MIN (>=60); GFR NON AFRICAN AMERICAN 36 ML/MIN (>=60); GLOBULIN 4.3 G/DL (2.5-4.1); GLUCOSE, SERUM 119 MG/DL (60-99); POTASSIUM, SERUM 4.2 MMOL/L (3.5-5.3); SGOT(AST) 17 U/L (5-40); SGPT(ALT) 21 U/L (5-65); SODIUM, SERUM 139 MMOL/L (135-148); TOTAL BILIRUBIN 1.4 MG/DL (0-1.2); TOTAL PROTEIN 7.4 G/DL (6.0-8.5)
[2017-02-21 07:37] LABS: BASOPHILS 0.3 %; BASOPHILS ABSOLUTE 0.03 10/3/uL (0.0-0.16); EOSINOPHILS ABSOLUTE 0.32 10/3/uL (0.0-0.53); HEMATOCRIT 39.2 % (40.0-51.0); HEMOGLOBIN 13.4 g/dL (13.6-17.8); IMMATURE GRANULOCYTES 0.3 %; IMMATURE GRANULOCYTES ABSOLUTE 0.03 10/3/uL (0.0-0.11); LYMPHOCYTES 20.3 %; LYMPHOCYTES ABSOLUTE 2.17 10/3/uL (0.67-4.30); MEAN CORPUSCULAR HEMOGLOB 30.1 pg (26.0-34.0); MEAN CORPUSCULAR VOLUME 88.1 fL (80-100); MEAN PLATELET VOLUME 10.1 fL (9.2-13.0); MONOCYTES 9.9 %; MONOCYTES ABSOLUTE 1.06 10/3/uL (0.21-1.20); NEUTROPHILS 66.2 %; NEUTROPHILS ABSOLUTE 7.07 10/3/uL (2.02-8.40); PLATELET COUNT 173 10/3/uL (150-400); RBC DISTRIBUTION WIDTH 14.1 % (12.0-16.0); RED CELL COUNT 4.45 10/6/uL (4.7-6.1); WHITE BLOOD CELLS 10.7 10/3/uL (4.5-10.5)
[2017-02-21 07:38] LABS: MANUAL DIFF NO %; MEAN CORPUS HGB CONC 34.2 g/dL (32.0-36.0)
[2017-02-21 07:47] LABS: INTERNATIONAL NORMAL RATI 1.3 UNITS (-)
[2017-02-21 07:48] LABS: PROTIME (NOT ORD) 16.3 SEC (12.0-14.5)
[2017-02-21 07:52] LABS: BUN (BLOOD UREA NITROGEN) 39 MG/DL (6-23); CALCIUM, SERUM 9.3 MG/DL (8.5-10.4); CHLORIDE, SERUM 100 MMOL/L (96-112); CO2 (CARBON DIOXIDE) 32 MMOL/L (24-34); CREATININE 1.72 MG/DL (0.70-1.30); GFR AFRICAN AMERICAN 41 ML/MIN (>=60); GFR NON AFRICAN AMERICAN 35 ML/MIN (>=60); GLUCOSE, SERUM 118 MG/DL (60-99); POTASSIUM, SERUM 4.5 MMOL/L (3.5-5.3); SODIUM, SERUM 136 MMOL/L (135-148)
[2017-02-22 04:08] LABS: BASOPHILS 0.2 %; BASOPHILS ABSOLUTE 0.02 10/3/uL (0.0-0.16); EOSINOPHILS 3.4 %; EOSINOPHILS ABSOLUTE 0.37 10/3/uL (0.0-0.53); HEMATOCRIT 37.6 % (40.0-51.0); HEMOGLOBIN 12.6 g/dL (13.6-17.8); IMMATURE GRANULOCYTES 0.4 %; IMMATURE GRANULOCYTES ABSOLUTE 0.04 10/3/uL (0.0-0.11); LYMPHOCYTES 19.1 %; LYMPHOCYTES ABSOLUTE 2.07 10/3/uL (0.67-4.30); MEAN CORPUS HGB CONC 33.5 g/dL (32.0-36.0); MEAN CORPUSCULAR HEMOGLOB 29.8 pg (26.0-34.0); MEAN CORPUSCULAR VOLUME 88.9 fL (80-100); MEAN PLATELET VOLUME 10.1 fL (9.2-13.0); MONOCYTES 12.1 %; MONOCYTES ABSOLUTE 1.31 10/3/uL (0.21-1.20); NEUTROPHILS 64.8 %; NEUTROPHILS ABSOLUTE 7.03 10/3/uL (2.02-8.40); PLATELET COUNT 188 10/3/uL (150-400); RBC DISTRIBUTION WIDTH 14.1 % (12.0-16.0); RED CELL COUNT 4.23 10/6/uL (4.7-6.1); WHITE BLOOD CELLS 10.8 10/3/uL (4.5-10.5)
[2017-02-22 04:11] LABS: MANUAL DIFF NO %
[2017-02-22 04:16] LABS: INTERNATIONAL NORMAL RATI 1.4 UNITS (-); PROTIME (NOT ORD) 16.8 SEC (12.0-14.5)
[2017-02-22 04:27] LABS: A/G RATIO 0.7 (0.7-1.9); ALKALINE PHOSPHATASE 106 U/L (45-117); BUN (BLOOD UREA NITROGEN) 38 MG/DL (6-23); C-REACTIVE PROTEIN 93.2 MG/L (<8.0); CALCIUM, SERUM 9.3 MG/DL (8.5-10.4); CHLORIDE, SERUM 97 MMOL/L (96-112); CO2 (CARBON DIOXIDE) 31 MMOL/L (24-34); CREATININE 1.73 MG/DL (0.70-1.30); GFR AFRICAN AMERICAN 41 ML/MIN (>=60); GFR NON AFRICAN AMERICAN 35 ML/MIN (>=60); GLOBULIN 4.5 G/DL (2.5-4.1); GLUCOSE, SERUM 112 MG/DL (60-99); POTASSIUM, SERUM 4.5 MMOL/L (3.5-5.3); SGOT(AST) 19 U/L (5-40); SGPT(ALT) 23 U/L (5-65); SODIUM, SERUM 137 MMOL/L (135-148); TOTAL BILIRUBIN 0.7 MG/DL (0-1.2); TOTAL PROTEIN 7.5 G/DL (6.0-8.5)
[2017-02-22 06:12] LABS: SED RATE 78 MM/HR (0-15)
[2017-02-22 14:53] LABS: BD FL LYMPH (NOT ORD) 8 %; BD FL SOURCE (NOT ORD) RIGHT KNEE; BF BASO (NOT OF) 0 %; BF LARGE MONONUCLEAR 4 %; BODY FLUID EOS (NOT ORD) 0 %; BODY FLUID SEG (NOT ORD) 88 %
[2017-02-22 14:54] LABS: BF TOTAL CELL CT (NOT ORD 7836 /MM3; BODY FLUID RBC (NOT ORD) 57000 /MM3
[2017-02-22 21:39] LABS: ASCORBIC ACID (UR NOT ORDER) NEG (NEG); BILIRUBIN, URINE NEGATIVE (NEG); KETONE, URINE NEGATIVE (NEG); LEUKOCYTE ESTERASE(NOT OR TRACE (NEG); WBC (NOT ORDERED) (RFLEX) 1 (0-5)
[2017-02-23 05:36] LABS: BASOPHILS 0.3 %; BASOPHILS ABSOLUTE 0.03 10/3/uL (0.0-0.16); EOSINOPHILS 3.8 %; EOSINOPHILS ABSOLUTE 0.38 10/3/uL (0.0-0.53); HEMATOCRIT 37.8 % (40.0-51.0); HEMOGLOBIN 12.6 g/dL (13.6-17.8); IMMATURE GRANULOCYTES 0.4 %; IMMATURE GRANULOCYTES ABSOLUTE 0.04 10/3/uL (0.0-0.11); LYMPHOCYTES 21.9 %; LYMPHOCYTES ABSOLUTE 2.22 10/3/uL (0.67-4.30); MANUAL DIFF NO %; MEAN CORPUS HGB CONC 33.3 g/dL (32.0-36.0); MEAN CORPUSCULAR HEMOGLOB 29.5 pg (26.0-34.0); MEAN CORPUSCULAR VOLUME 88.5 fL (80-100); MEAN PLATELET VOLUME 9.7 fL (9.2-13.0); MONOCYTES 9.9 %; NEUTROPHILS 63.7 %; NEUTROPHILS ABSOLUTE 6.46 10/3/uL (2.02-8.40); PLATELET COUNT 181 10/3/uL (150-400); RBC DISTRIBUTION WIDTH 14.2 % (12.0-16.0); RED CELL COUNT 4.27 10/6/uL (4.7-6.1); WHITE BLOOD CELLS 10.1 10/3/uL (4.5-10.5)
[2017-02-23 05:38] LABS: INTERNATIONAL NORMAL RATI 1.5 UNITS (-); PROTIME (NOT ORD) 17.7 SEC (12.0-14.5)
[2017-02-23 05:55] LABS: CALCIUM, SERUM 9.3 MG/DL (8.5-10.4); CHLORIDE, SERUM 97 MMOL/L (96-112); CO2 (CARBON DIOXIDE) 33 MMOL/L (24-34); CREATININE 1.94 MG/DL (0.70-1.30); GFR AFRICAN AMERICAN 36 ML/MIN (>=60); GFR NON AFRICAN AMERICAN 31 ML/MIN (>=60); GLUCOSE, SERUM 108 MG/DL (60-99); POTASSIUM, SERUM 4.8 MMOL/L (3.5-5.3); SODIUM, SERUM 132 MMOL/L (135-148)
[2017-02-23 05:58] LABS: BUN (BLOOD UREA NITROGEN) 44 MG/DL (6-23)
[2017-02-24 06:25] LABS: INTERNATIONAL NORMAL RATI 1.4 UNITS (-); PROTIME (NOT ORD) 16.9 SEC (12.0-14.5)
[2017-02-24 06:37] LABS: BUN (BLOOD UREA NITROGEN) 46 MG/DL (6-23); CALCIUM, SERUM 9.1 MG/DL (8.5-10.4); CHLORIDE, SERUM 94 MMOL/L (96-112); CO2 (CARBON DIOXIDE) 34 MMOL/L (24-34); CREATININE 2.13 MG/DL (0.70-1.30); GFR AFRICAN AMERICAN 32 ML/MIN (>=60); GFR NON AFRICAN AMERICAN 27 ML/MIN (>=60); GLUCOSE, SERUM 129 MG/DL (60-99); POTASSIUM, SERUM 5.1 MMOL/L (3.5-5.3); SODIUM, SERUM 133 MMOL/L (135-148)
[2017-02-24 06:42] LABS: BASOPHILS 0.3 %; BASOPHILS ABSOLUTE 0.03 10/3/uL (0.0-0.16); EOSINOPHILS 3.7 %; EOSINOPHILS ABSOLUTE 0.32 10/3/uL (0.0-0.53); HEMATOCRIT 38.1 % (40.0-51.0); HEMOGLOBIN 12.6 g/dL (13.6-17.8); IMMATURE GRANULOCYTES 0.3 %; IMMATURE GRANULOCYTES ABSOLUTE 0.03 10/3/uL (0.0-0.11); LYMPHOCYTES 19.4 %; LYMPHOCYTES ABSOLUTE 1.67 10/3/uL (0.67-4.30); MANUAL DIFF NO %; MEAN CORPUS HGB CONC 33.1 g/dL (32.0-36.0); MEAN CORPUSCULAR HEMOGLOB 29.6 pg (26.0-34.0); MEAN CORPUSCULAR VOLUME 89.4 fL (80-100); MEAN PLATELET VOLUME 10.4 fL (9.2-13.0); MONOCYTES 11.5 %; MONOCYTES ABSOLUTE 0.99 10/3/uL (0.21-1.20); NEUTROPHILS 64.8 %; NEUTROPHILS ABSOLUTE 5.57 10/3/uL (2.02-8.40); PLATELET COUNT 186 10/3/uL (150-400); RBC DISTRIBUTION WIDTH 13.8 % (12.0-16.0); RED CELL COUNT 4.26 10/6/uL (4.7-6.1); WHITE BLOOD CELLS 8.6 10/3/uL (4.5-10.5)
[2017-02-25 06:44] LABS: BASOPHILS 0.1 %; BASOPHILS ABSOLUTE 0.01 10/3/uL (0.0-0.16); EOSINOPHILS 0.2 %; EOSINOPHILS ABSOLUTE 0.02 10/3/uL (0.0-0.53); HEMATOCRIT 38.8 % (40.0-51.0); HEMOGLOBIN 13.1 g/dL (13.6-17.8); IMMATURE GRANULOCYTES 0.3 %; IMMATURE GRANULOCYTES ABSOLUTE 0.03 10/3/uL (0.0-0.11); LYMPHOCYTES ABSOLUTE 1.46 10/3/uL (0.67-4.30); MANUAL DIFF NO %; MEAN CORPUS HGB CONC 33.8 g/dL (32.0-36.0); MEAN CORPUSCULAR HEMOGLOB 29.5 pg (26.0-34.0); MEAN CORPUSCULAR VOLUME 87.4 fL (80-100); MEAN PLATELET VOLUME 9.9 fL (9.2-13.0); MONOCYTES 9.1 %; MONOCYTES ABSOLUTE 0.78 10/3/uL (0.21-1.20); NEUTROPHILS 73.3 %; PLATELET COUNT 228 10/3/uL (150-400); RBC DISTRIBUTION WIDTH 13.2 % (12.0-16.0); RED CELL COUNT 4.44 10/6/uL (4.7-6.1); WHITE BLOOD CELLS 8.6 10/3/uL (4.5-10.5)
[2017-02-25 06:49] LABS: INTERNATIONAL NORMAL RATI 1.4 UNITS (-); PROTIME (NOT ORD) 16.6 SEC (12.0-14.5)
[2017-02-25 06:53] LABS: BUN (BLOOD UREA NITROGEN) 43 MG/DL (6-23); CALCIUM, SERUM 9.3 MG/DL (8.5-10.4); CHLORIDE, SERUM 95 MMOL/L (96-112); CO2 (CARBON DIOXIDE) 33 MMOL/L (24-34); CREATININE 2.06 MG/DL (0.70-1.30); GFR AFRICAN AMERICAN 33 ML/MIN (>=60); GFR NON AFRICAN AMERICAN 29 ML/MIN (>=60); GLUCOSE, SERUM 122 MG/DL (60-99); POTASSIUM, SERUM 4.6 MMOL/L (3.5-5.3); SODIUM, SERUM 133 MMOL/L (135-148)
[2017-02-26 06:45] LABS: INTERNATIONAL NORMAL RATI 1.3 UNITS (-); PROTIME (NOT ORD) 16.5 SEC (12.0-14.5)
[2017-02-27 06:17] LABS: INTERNATIONAL NORMAL RATI 1.7 UNITS (-); PROTIME (NOT ORD) 19.4 SEC (12.0-14.5)
[2017-02-27 06:25] LABS: BUN (BLOOD UREA NITROGEN) 45 MG/DL (6-23); CALCIUM, SERUM 9.1 MG/DL (8.5-10.4); CHLORIDE, SERUM 99 MMOL/L (96-112); CO2 (CARBON DIOXIDE) 31 MMOL/L (24-34); CREATININE 1.97 MG/DL (0.70-1.30); GFR AFRICAN AMERICAN 35 ML/MIN (>=60); GFR NON AFRICAN AMERICAN 30 ML/MIN (>=60); GLUCOSE, SERUM 128 MG/DL (60-99); POTASSIUM, SERUM 4.1 MMOL/L (3.5-5.3); SODIUM, SERUM 134 MMOL/L (135-148)
[2017-02-28 07:03] LABS: INTERNATIONAL NORMAL RATI 2.2 UNITS (-)
[2017-02-28 07:07] LABS: PROTIME (NOT ORD) 24.6 SEC (12.0-14.5)
[2017-02-28 07:11] LABS: CALCIUM, SERUM 8.8 MG/DL (8.5-10.4); CHLORIDE, SERUM 100 MMOL/L (96-112); CO2 (CARBON DIOXIDE) 34 MMOL/L (24-34); GFR AFRICAN AMERICAN 36 ML/MIN (>=60); GFR NON AFRICAN AMERICAN 31 ML/MIN (>=60); GLUCOSE, SERUM 129 MG/DL (60-99); POTASSIUM, SERUM 4.1 MMOL/L (3.5-5.3); SODIUM, SERUM 137 MMOL/L (135-148)
[2017-02-28 07:23] LABS: BUN (BLOOD UREA NITROGEN) 49 MG/DL (6-23)
[2017-03-01 06:10] LABS: CALCIUM, SERUM 9.1 MG/DL (8.5-10.4); CHLORIDE, SERUM 103 MMOL/L (96-112); CO2 (CARBON DIOXIDE) 31 MMOL/L (24-34); CREATININE 1.63 MG/DL (0.70-1.30); GFR AFRICAN AMERICAN 44 ML/MIN (>=60); GFR NON AFRICAN AMERICAN 38 ML/MIN (>=60); GLUCOSE, SERUM 118 MG/DL (60-99); POTASSIUM, SERUM 4.3 MMOL/L (3.5-5.3); SODIUM, SERUM 139 MMOL/L (135-148)
[2017-03-01 06:11] LABS: INTERNATIONAL NORMAL RATI 2.6 UNITS (-); PROTIME (NOT ORD) 27.9 SEC (12.0-14.5)
[2017-03-01 06:12] LABS: BUN (BLOOD UREA NITROGEN) 45 MG/DL (6-23)
[2017-03-02 06:10] LABS: INTERNATIONAL NORMAL RATI 2.5 UNITS (-)
== END 2017-03-02 16:52 | DRG 291 ==
LOC: ER 13:32 → IMCU 19:31 → 4SO 02-17 16:54 → IMCU 02-18 07:02 → 7NO 02-20 18:22
PROVIDERS: Emergency Medicine; Hospitalist; Internal Medicine; Internal Medicine Cardiovascular Disease; Internal Medicine Pulmonary Disease; Orthopaedic Surgery
PROC: 0S9C3ZX Drainage of Right Knee Joint, Percutaneous Approach, Diagnostic (ICD-10-PCS; principal; 2017-02-22)
DX: R57.0 Cardiogenic shock (principal); I50.23 Acute on chronic systolic (congestive) heart failure; J96.21 Acute and chronic respiratory failure with hypoxia; I47.2 Ventricular tachycardia; N17.9 Acute kidney failure, unspecified; N18.4 Chronic kidney disease, stage 4 (severe); N18.3 Chronic kidney disease, stage 3 (moderate); I24.8 Other forms of acute ischemic heart disease; J96.11 Chronic respiratory failure with hypoxia; I13.0 Hypertensive heart and chronic kidney disease with heart failure and stage 1 through stage 4 chronic kidney disease, or unspecified chronic kidney disease; J44.1 Chronic obstructive pulmonary disease with (acute) exacerbation; I25.5 Ischemic cardiomyopathy; E03.9 Hypothyroidism, unspecified; M13.0 Polyarthritis, unspecified; Z99.81 Dependence on supplemental oxygen; Z66 Do not resuscitate; Z79.82 Long term (current) use of aspirin; Z79.01 Long term (current) use of anticoagulants; Z87.01 Personal history of pneumonia (recurrent); Z95.810 Presence of automatic (implantable) cardiac defibrillator; I25.10 Atherosclerotic heart disease of native coronary artery without angina pectoris; Z77.090 Contact with and (suspected) exposure to asbestos; Z88.5 Allergy status to narcotic agent
CPT/HCPCS: 36600; 71010; 71020; 73560-RT; 74000; 76700; 80048; 80053; 81001; 82330; 82533; 82550; 82553; 82803; 82947; 83605; 83735; 83880; 84100; 84132; 84145; 84295; 84443; 84484; 84550; 85014; 85025; 85610; 85652; 85730; 86140; 87040; 87070; 87075; 87205; 87641; 89051; 89060; 93005; 94640; 94660; 96374; 97110-GP; 97161-GP; 97164-GP; 97166-GO; 97530-GP; 97535-GO; 99291; A9270-GY; C8929; J1720; J1940; J2405; J2550; J2765; Q9957